=== PATIENT | male | born 1945 | race Caucasian/White ===

== ENCOUNTER 2019-11-28 01:38 | Day surgery (SDC) | payer MEDICARE, SELFPAY ==
[2019-11-23 11:27] VITALS: BMI 30.4
[2019-11-28 12:21] VITALS: BP 152/71; PULSE 78; RESP 16; TEMP 36.7; O2SAT 99; BMI 30.7
--- NOTE | 2019-11-28 12:29 | WPDANESEPPF ---
Anes - Initial Pre Proc Eval Procedure: Operation Date: 11/28/19 13:30 Proposed Procedures p Esophagogastroduodenoscopy & Colonoscopy - Vic Ramey MD Date/Time: 11/28/19 12:29 Surgeon: Vic Ramey MD Pre Op Diagnosis: Anemia Patient Data Age: 74 Gender: M Height: 6 ft 1 in Weight: 105.6 kg Last Vital Signs Temp 98.0 F 11/28/19 12:21 Pulse 78 11/28/19 12:21 Resp 16 11/28/19 12:21 BP 152/71 H 11/28/19 12:21 Pulse Ox 99 11/28/19 12:21 Allergies Allergy/AdvReac Type Severity Reaction Status Date / Time No Known Allergies Allergy Verified 11/28/19 12:20 Home Medications Medication Instructions Recorded Confirmed Type atorvastatin 20 mg tablet 20 mg PO DAILY 11/21/19 11/23/19 History gabapentin 800 mg tablet 800 mg PO TID 11/21/19 11/23/19 History glipizide 5 mg tablet 5 mg PO BID 11/21/19 11/23/19 History losartan 100 1 tablet PO DAILY 11/21/19 11/23/19 History mg-hydrochlorothiazide 12.5 mg tablet metformin 1,000 mg tablet 1,000 mg PO BID 11/21/19 11/23/19 History rxniwpidkvzp-nsn-elzee acid-vit 1 tablet PO DAILY 11/21/19 11/23/19 History K-lycop 400 mcg-20 mcg-370 mcg tablet polysaccharide iron complex 150 mg 150 mg PO DAILY 11/21/19 11/23/19 History iron capsule peg 3350-electrolytes 236 240 ml PO Q10M #4000 ml 11/22/19 Rx gram-22.74 gram-6.74 gram-5.86 gram solution latanoprost 1 drp OPHTHALMIC (EYE) DAILY 11/23/19 11/23/19 History Patient hx anesthesia problems: none Family hx anesthesia problems: none PMFSH Past Medical History Medical History (Updated 11/28/19 @ 12:52 by Alhaji Woodard MD) Diabetes Hyperlipidemia Hypertension Iron deficiency anemia Prostate cancer Anes - Eval Final PreProcedure Day of Procedure 11/28/19 12:29 Patient weight: obese Heart: regular rate and rhythm Lungs: clear to auscultation Airway: Mallampati scale class III Neurological: alert and oriented Last oral intake: >/= 8 hours ASA classification: III Emergent: no Anesthetic plan: proceed Anesthesia type and monitoring: general GIVS and standard monitoring Informed Consent: The patient's anesthetic plan and its attendant risks and benefits were discussed with the patient/family/POA. Questions were solicited and answers provided to the satisfaction of the patient/family/POA.
[2019-11-28] MEDS: LACTATED RINGERS 1,000 ML 150 ML IV CONT (12:34)
[2019-11-28 12:37] LABS: Glucose Point of Care 171 (65-105)
--- NOTE | 2019-11-28 14:00 | WPDHPUPDATE1 ---
History and Physical Update Update Date/Time: 11/28/19 14:00 History and Physical has been reviewed, including an updated exam of the patient. There are NO changes in the patient's condition. Risks, benefits, and alternatives have been discussed and questions answered. Patient agrees to proceed with procedure.
[2019-11-28 14:52] VITALS: BP 117/59; PULSE 82; RESP 16; O2SAT 98
[2019-11-28 15:02] VITALS: BP 121/60; PULSE 73; RESP 20; O2SAT 98
[2019-11-28 15:12] VITALS: BP 138/72; PULSE 74; RESP 18; O2SAT 99
== END 2019-11-28 15:36 | disposition home or self-care (01) ==
PROVIDERS: PCP Internal Medicine; Visit Provider Internal Medicine Gastroenterology
PROC: 0DJ08ZZ Inspection of Upper Intestinal Tract, Via Natural or Artificial Opening Endoscopic (ICD-10-PCS; CPT 43235; principal; 2019-11-28 13:30)
DX: D50.9 Iron deficiency anemia, unspecified (principal); D12.2 Benign neoplasm of ascending colon; Q27.33 Arteriovenous malformation of digestive system vessel; K57.30 Diverticulosis of large intestine without perforation or abscess without bleeding; K64.8 Other hemorrhoids; K64.4 Residual hemorrhoidal skin tags; K29.70 Gastritis, unspecified, without bleeding; I10 Essential (primary) hypertension; E78.5 Hyperlipidemia, unspecified; E11.9 Type 2 diabetes mellitus without complications; Z85.46 Personal history of malignant neoplasm of prostate; Z79.84 Long term (current) use of oral hypoglycemic drugs; E66.9 Obesity, unspecified; Z68.30 Body mass index [BMI] 30.0-30.9, adult
CPT/HCPCS: 45385; 45388; 43239; 88305; J2704; J7120

== ENCOUNTER 2020-03-05 11:10 | Outpatient (CLI) | payer MEDICARE, SELFPAY ==
--- NOTE | ~2020-03-05 | XR_ITS ---
XR lumbar spine 2-3V DATE: 03/05/2020 11:48 INDICATION: Sciatica TECHNIQUE: AP, lateral, coned lateral lumbosacral views COMPARISON: None FINDINGS: There is grade 1 anterolisthesis at L4-5 due to degenerative change at the apophyseal joint s. There is severe degenerative disc disease at L5-S1 with associated mild retrolisthesis. No fracture or bone destruction is evident. The lumbar and T12 pedicles are intact. The sacroiliac joints appear normal. There is extensive calcification of the abdominal aorta and iliac arteries without apparent aneurysm. IMPRESSION: Degenerative changes Reviewed, dictated and finalized at location A. IMPRESSION: Degenerative changes
== END 2020-03-05 11:11 | disposition home or self-care (01) ==
PROVIDERS: PCP Internal Medicine; Visit Provider Internal Medicine
DX: M54.5 Low back pain (principal)
CPT/HCPCS: 72100

== ENCOUNTER 2022-05-27 07:19 | Outpatient (CLI) | payer MEDICARE, SELFPAY ==
--- NOTE | ~2022-05-27 | US_ITS ---
EXAMINATION: US right upper quadrant DATE: 05/27/2022 08:08 INDICATION: Elevated liver enzymes TECHNIQUE: Multiple grayscale and Doppler ultrasound images of the abdomen were obtained. COMPARISON: None available FINDINGS: The head and body of the pancreas are normal. The pancreatic tail is obscured by bowel gas. The liver demonstrates increased echogenicity, heterogenous echotexture, and decreased through trans mission. Hypoechoic areas of the liver adjacent to the gallbladder fossa likely represent fatty spari ng. No surface nodularity. Normal hepatopetal flow in the main portal vein. The gallbladder is normal with no abnormal wall thickening, pericholecystic fluid or stones. The normal common bile duct measu res 4 mm. There was no sonographic Perez sign. IMPRESSION: 1. Diffuse hepatic steatosis. Reviewed, dictated and finalized at location B.
== END 2022-05-27 07:20 | disposition home or self-care (01) ==
PROVIDERS: PCP Internal Medicine; Visit Provider Internal Medicine
DX: R74.8 Abnormal levels of other serum enzymes (principal); K76.0 Fatty (change of) liver, not elsewhere classified
CPT/HCPCS: 76705

== ENCOUNTER 2022-08-07 10:18 | Outpatient (CLI) | payer MEDICARE, SELFPAY ==
--- NOTE | ~2022-08-07 | MR_ITS ---
EXAMINATION: MR lumbar spine wo con DATE: 08/07/2022 11:00 INDICATION: Low back pain. TECHNIQUE: Magnetic resonance imaging (MRI) of the lumbar spine was performed without intravenous con trast. Sequences included sagittal T2-weighted FSE, sagittal T2-weighted FS FSE, sagittal T1-weighted FSE, and axial T2-weighted FSE. COMPARISON: Lumbar spine radiograph 03/05/2020 FINDINGS: There is 5 degrees dextrocurvature of thoracolumbar spine. There is 5 mm anterolisthesis of L4 on L5 and 5 mm retrolisthesis of L5 on S1. Vertebral body heights are normal. There is mildly dec reased disc height at L4-L5 and severely decreased disc height at L5-S1 with endplate remodeling. The distal spinal cord signal intensity is normal. The conus medullaris is at L1. The following disc lev els are specifically discussed: L1-L2: The disc is bulging. There is moderate bilateral facet joint osteoarthritis. There is mild arabella ateral neural foraminal stenosis. There is mild central canal stenosis. L2-L3: The disc is bulging. There is severe right and mild left facet joint osteoarthritis. There is no neural foraminal stenosis. There is mild central canal stenosis. L3-L4: The disc is bulging and has an annular fissure. There is severe bilateral facet joint osteoart hritis. There is mild bilateral neural foraminal stenosis. There is mild central canal stenosis. L4-L5: The disc is bulging and has an annular fissure. There is severe bilateral facet joint osteoart hritis. There is moderate bilateral neural foraminal stenosis. There is moderate central canal stenos is. There is asymmetric severe stenosis of right lateral recess. L5-S1: The disc is bulging and has an annular fissure. There is moderate bilateral facet joint osteoa rthritis. There is moderate bilateral neural foraminal stenosis. There is mild central canal stenosis . IMPRESSION: 1. Severe lower lumbar spondylosis. Reviewed, dictated and finalized at location A. DINGS AND GROUNDS DIRECTOR
== END 2022-08-07 10:19 | disposition home or self-care (01) ==
PROVIDERS: PCP Internal Medicine; Visit Provider Internal Medicine
DX: M54.50 Low back pain, unspecified (principal); M43.06 Spondylolysis, lumbar region
CPT/HCPCS: 72148

== ENCOUNTER 2023-08-31 16:50 | Outpatient (CLI) | payer MEDICARE, SELFPAY ==
--- NOTE | ~2023-08-31 | XR_ITS ---
EXAMINATION: XR thoracic spine 3V DATE: 08/31/2023 17:20 INDICATION: Thoracic and lumbar radiculopathy. TECHNIQUE: 3 views of thoracic spine on 4 radiographs were obtained. COMPARISON: None. FINDINGS: There is 8 degrees levocurvature of thoracic spine. Vertebral body heights are normal. Ther e is mildly decreased disc height at multiple levels in mid thoracic spine. There are endplate osteop hytes at most levels. IMPRESSION: 1. Mild thoracic spondylosis. Reviewed, dictated and finalized at location E. EY WORKERS SUPERVISOR
--- NOTE | ~2023-08-31 | XR_ITS ---
EXAMINATION: XR lumbar spine 2-3V DATE: 08/31/2023 17:20 INDICATION: Lumbar radiculopathy. TECHNIQUE: 3 views of lumbar spine were obtained. COMPARISON: Lumbar spine radiograph 03/05/2020, MRI 08/07/2022 FINDINGS: There is 4 degrees dextrocurvature of lumbar spine. There is 5 mm anterolisthesis of L4 on L5 and 4 mm anterolisthesis of L5 on S1. Vertebral body heights are normal. There is mildly decreased disc height at L4-L5 and severely decreased disc height at L5-S1. There is multilevel facet joint os teoarthritis, severe in lower lumbar spine. IMPRESSION: 1. Severe lower lumbar spondylosis. Reviewed, dictated and finalized at location E. ITY ASSURANCE SUPERVISOR
== END 2023-08-31 16:51 | disposition home or self-care (01) ==
PROVIDERS: PCP Internal Medicine; Visit Provider Pain Medicine Interventional Pain Medicine
DX: M47.24 Other spondylosis with radiculopathy, thoracic region (principal); M47.25 Other spondylosis with radiculopathy, thoracolumbar region; M47.814 Spondylosis without myelopathy or radiculopathy, thoracic region; M47.815 Spondylosis without myelopathy or radiculopathy, thoracolumbar region; M43.06 Spondylolysis, lumbar region
CPT/HCPCS: 72072; 72100

== ENCOUNTER 2024-06-15 16:22 | Outpatient (CLI) | payer MEDICARE, SELFPAY ==
--- NOTE | ~2024-06-15 | CT_ITS ---
EXAMINATION:CT lung screening DATE: 06/15/2024 16:45 INDICATION: Personal history of nicotine dependence. Smoker who quit 13 years ago with 46 pack year h istory. TECHNIQUE: Computed tomography (CT) of the chest was performed without intravenous contrast. Automate d exposure control and iterative reconstruction technique were employed. The dose-length product (DLP ) was 200.85 mGy-cm. COMPARISON: None. FINDINGS: There is mild emphysema. There is mild atelectasis bilaterally. There is a 2.0 cm groundgla ss opacity in right upper lobe. There is a 1.4 cm groundglass opacity in right upper lobe. There is a 7 mm nodule in right upper lobe. There is a 4 mm nodule at minor fissure. There are small groundglas s opacities in left upper lobe and right lower lobe. No pleural effusion. The heart size is normal. T here are coronary artery calcifications. No pericardial effusion. There is mild thoracic spondylosis. IMPRESSION: 1. Lung-RADS category 3: Probably benign. Further evaluation is recommended with noncontrast low-dose chest CT in 6 months. Reviewed, dictated and finalized at location A. IMPRESSION: 1. Lung-RADS category 3: Probably benign. Further evaluation is recommended wit h noncontrast low-dose chest CT in 6 months.
== END 2024-06-15 16:23 | disposition home or self-care (01) ==
PROVIDERS: PCP Internal Medicine; Visit Provider Internal Medicine
DX: Z12.2 Encounter for screening for malignant neoplasm of respiratory organs (principal); Z87.891 Personal history of nicotine dependence
CPT/HCPCS: 71271

== ENCOUNTER 2024-09-07 13:45 | Outpatient (CLI) | payer MEDICARE, SELFPAY ==
--- NOTE | ~2024-09-07 | XR_ITS ---
3 VIEWS LUMBAR SPINE Ordering provider: Fabio Acharya History: . Radiculopathy . Comparison: None. FINDINGS: VERTEBRAL BODIES:Anterolisthesis at the level of L4-L5. No visible fracture or subluxation. Degenera tive changes of the spine. DISK SPACES: Narrowing of the disc L4-L5 and L5-S1. Multilevel facet joint disease. SOFT TISSUES: Atherosclerotic changes of the aorta. Opacity in the right upper quadrant which may rep resent a gall bladder stone. IMPRESSION: No acute osseous abnormality lumbar spine. Anterolisthesis at the level of L4-L5. Multilevel degenerative disc disease. Reviewed, dictated and finalized at location A. SCIENCE TECHNICIAN
--- NOTE | ~2024-09-07 | XR_ITS ---
XR_CERV2-3V_CR Ordering provider: Kayy Magallon History: . Radiculopathy . Comparison: None. FINDINGS: VERTEBRAL BODIES: DISH is seen anteriorly. Normal height and alignment. No visible fracture or sublux ation. The dens is intact. DISK SPACES: Narrowing of the disc C6-C7. Multilevel facet joint disease. Multilevel uncovertebral michael int osteoarthritic changes. PARASPINOUS SOFT TISSUES: No prevertebral soft tissue swelling. IMPRESSION: No acute osseous abnormality cervical spine. Degenerative disc disease at the level of C6-C7. Multilevel facet joint disease. Reviewed, dictated and finalized at location A. INJECTION MOLD TECHNICIAN IMPRESSION: No acute osseous abnormality cervical spine. Degenerative disc disease at the level of C6-C7. Multilevel facet joint disease .
== END 2024-09-07 13:46 | disposition home or self-care (01) ==
PROVIDERS: PCP Internal Medicine
DX: M43.16 Spondylolisthesis, lumbar region (principal); M51.369 Other intervertebral disc degeneration, lumbar region without mention of lumbar back pain or lower extremity pain; M54.12 Radiculopathy, cervical region
CPT/HCPCS: 72040; 72100

== ENCOUNTER 2024-11-22 12:37 | Outpatient (CLI) | payer MEDICARE, SELFPAY ==
--- NOTE | ~2024-11-22 | XR_ITS ---
Thoracic spine: Clinical Indication: Radiculopathy AP and lateral views were performed. No fracture is seen. There is normal alignment of the vertebrae. There is mild to moderate degenerat magali disc narrowing at the upper to mid thoracic spine. Paravertebral soft tissues appear normal. Impression: Mild degenerative change, overall, as above. Reviewed, dictated and finalized at location . Impression: Mild degenerative change, overall, as above.
--- OUTSIDE RECORDS SUMMARY | 2024-11-22 14:04 | XMS_ITS | Patient Health Summary ---
Author Organization [facility] Address [address] [place] [address] Care Team Providers Care Cost Estimating Clerk Name Role Phone Unavailable Primary Care Provider Unavailabl e Note from [facility],non-owned Affiliates and Associated Physician Practices is amultiple site organization consisting of ambulatory clinics and hospital sitesin [place], [place], [place] and [place]. This disclosure is being madepursuant to the Care Everywhere program and may not contain all information available regarding this patient. Last updated 18.[facility] [employer] Social History Tobacco Use Types Packs/Day Years Used Date Smoking Tobacco: Never Assessed Sex and Gender Information Value Date Recorded Sex Assigned at Not on file Gender Identity Not on file Sexual Orientation Not on file Procedures * DERMATOPATHOLOGY(Performed 07/31/2020) * DERMATOPATHOLOGY(Performed 07/17/2020) * DERMATOPATHOLOGY(Performed 05/27/2020) Results * DERMATOPATHOLOGY (07/31/2020 12:00 AM JOB TRACER) Only the most recent of3 resultswithin the time period is included. Case Report Dermatopathology Report Case: [id number] Authorizing Provider: Radha Tang MD Collected: 07/31/2020 12:00 AM Ordering Location: [facility] Received: 08/01/2020 06:54 AM Pathologist: Funmi Underwood MD Specimen: Skin, left mid back 0 1:48 PM JOB TRACER DERMATOPATHOLOGY LABORATORY Final Diagnosis Specimen A. SKIN, left mid back: BASAL CELL CARCINOMA, INFILTRATIVE PATTERN (C44.519) NOT PRESENT AT MARGIN DERMAL SCAR (L90.5) 0 1:48 PM JOB TRACER DERMATOPATHOLOGY LABORATORY Clinical History Biopsy proven BCC. 0 1:48 PM JOB TRACER DERMATOPATHOLOGY LABORATORY Gross Description Specimen A: Received is one formalin filled container labeled with the patient's name and designated left mid back. The specimen consists of a non-oriented ellipse of skin measuring [id number]. The epidermal surface consists of a centrally located 40h56an previous biopsy site. The margin is inked green. The 12 o'clock and 6 o'clock tips are submitted in cassette 1. The remainder of the ellipse is serially sectioned and submitted in cassettes 2-9. Jar 0. 0 1:48 PM [facility] DERMATOPATHOLOGY LABORATORY Microscopic Description Specimen A. SKIN, left mid back: Within the dermis there are nodular aggregates of basaloid cells associated with fibromyxoid stroma and epithelial-stromal clefts. At the advancing margin of the neoplasm, there are smaller angulated nests that infiltrate the dermis. This lesion is not present at the margin of the specimen. There are fibroblasts and collagen bundles oriented parallel to the skin surface with elongated blood vessels, some of which are oriented perpendicular to the skin surface. 0 1:48 PM [facility] DERMATOPATHOLOGY LABORATORY Disclaimer An external and internal positive and negative controls are appropriate for the histochemical, immunohistochemical and immunofluorescence stain(s) in this case (if any), except where stated explicitly. The performance characteristics of the stain(s) cited in this report were developed and its performance characteristic determined by the Dermatopathology Laboratory at [facility], directed by Dr. Jacinto Wise. These tests need not be, and therefore are not, approved by the [place] Food and Drug Administration. The tests are used for clinical purposes. Billing Codes Specimen Charges Stain Charges 92046 1 0 1:48 PM [facility] DERMATOPATHOLOGY LABORATORY Embedded Images 0 1:48 PM [facility] DERMATOPATHOLOGY LABORATORY Pathology/Cytolog y TISSUE SPECIMEN FROM SKIN / Unknown 07/31/2020 08/01/2020 6:54 AM JOB TRACER Radha Tang MD LAB - PATHOLOGY/CYT OLOGY ORDERABLES DERMATOPATHOLOGY LABORATORY [facility] - Department of Dermatology [address], [address] [phone]
--- OUTSIDE RECORDS SUMMARY | 2024-11-22 14:04 | XMS_ITS | Data Portability ---
Author Organization [place] [facility], Main Office Address [address] [place] [address] Assessment No assessment recorded. Plan of Treatment Reminders Order Date Submit Date Provider Last Modified By Organization Details Last Modified Time Details Appointments Follow Up 15 2024 02:45P M Christopher Hurley MD Not available Not available Not available Lab glycohemo globin, total, blood 2023 024 [facility] (Lab), [address] [place], [address], 07/05/2024 20:36:39 CMP, serum or plasma 2023 024 [facility] (Lab), [address] [place], [address], 07/05/2024 19:41:36 glycohemo globin, total, blood 2023 024 [facility] (Lab), [address] [place], [address], 03/01/2024 05:52:15 CMP, serum or plasma 2023 024 [facility] (Lab), [address] [place], [address], 02/29/2024 20:43:57 PSA, serum or plasma [address] (Lab), [address] [place], [address], 06/28/2023 07:53:07 urinalysi s, complete [address] (Lab), [address] [place], [address], 06/28/2023 07:53:07 unlisted lab - CBC study [address] (Lab), [address] [place], [address], 06/28/2023 07:53:07 CMP, serum or plasma [address] (Lab), [address] [place], [address], 06/28/2023 07:53:06 glycohemo globin, total, blood [address] (Lab), [address] [place], [address], 06/28/2023 07:53:06 CMP, serum or plasma [address] (Lab), [address] [place], [address], 06/28/2023 07:53:06 microalbu min, urine [address] (Lab), [address] [place], [address], 06/28/2023 07:53:06 lipid panel, serum [address] (Lab), [address] [place], [address], 06/28/2023 07:53:07 Referral None recorded. Procedures None recorded. Surgeries None recorded. Imaging LDCT, chest, for lung cancer screening - Auth approved, Auth# [id number], valid 02/29/24 - 08/27/242023 024 [facility] ([facility]), [address], [place], [address], 07/06/2024 16:42:14 Medication Orders ferrous sulfate 325 mg (65 mg iron) tablet 2023 024 [facility][id number], [address], [place], [address], 11/03/2023 10:57:56 Patient TargetsNo targets recorded. Patient InstructionsNo instructions recorded. Reason for Referral None Reported. Results Created Date Observation Date Name Description Value Unit Range Abnormal Flag Note LastModifiedBy Organization Detail LastModifiedTime 02/29/2002/29/2024 HEMOG LOBIN A1C HA1C 6.9 % 4.0-6. 0 high Diabe sonam Scree elier Crite holli: <5.7% Consi stent with absen ce of diabe sonam 5.7-6 .4% Consi stent with incre ased risk for diabe sonam (pred iabet es) >OR=6 .5% Consi stent with diabe sonam REFER ENCE: Diabe sonam Care 2016, 39(Johnson ppl.1 ):s13 -s22 Not Available [facility] (Lab) [address] [place], [address], 02/29/2024 20:04:24 02/29/20 24 02/29/2024 COMPR EHENS BRITT METAB OLIC PANEL sodium 139 mmol/ L 137-14 5 Not Available [facility] (Lab) [address] [place], [address], 02/29/2024 20:27:30 02/29/20 24 02/29/2024 COMPR EHENS BRITT METAB OLIC PANEL potassium 4.2 mmol/ L 3.5-5. 1 Not Available [facility] (Lab) [address] [place], [address], 02/29/2024 20:27:30 02/29/20 24 02/29/2024 COMPR EHENS BRITT METAB OLIC PANEL chloride 108 mmol/ L 98-107 high Not Available [facility] (Lab) [address] [place], [address], 02/29/2024 20:27:30 02/29/20 24 02/29/2024 COMPR EHENS BRITT METAB OLIC PANEL carbon dioxide 24 mmol/ L 22-30 Not Available [facility] (Lab) [address] [place], [address], 02/29/2024 20:27:30 02/29/20 24 02/29/2024 COMPR EHENS BRITT METAB OLIC PANEL anion gap 11.2 mmol/ L 14-22 low Not Available [facility] (Lab) [address] [place], [address], 02/29/2024 20:27:30 02/29/20 24 02/29/2024 COMPR EHENS BRITT METAB OLIC PANEL glucose 89 mg/dL 70-99 Not Available [facility] (Lab) [address] [place], [address], 02/29/2024 20:27:30 02/29/20 24 02/29/2024 COMPR EHENS BRITT METAB OLIC PANEL BUN 15 mg/dL 8-19 Not Available [facility] (Lab) [address] [place], [address], 02/29/2024 20:27:30 02/29/20 24 02/29/2024 COMPR EHENS BRITT METAB OLIC PANEL creatinine 0.92 mg/dL 0.66-1 .25 Not Available [facility] (Lab) [address] [place], [address], 02/29/2024 20:27:30 02/29/20 24 02/29/2024 COMPR EHENS BRITT METAB OLIC PANEL GFR >60 Refer ence Range : Traver ge GFR Healt hy Adult : >60 mL/mi n/1.7 3 m2 Chron ic Kidne y Disea se: 15-60 mL/mi n/1.7 3 m2 Kidkelsey y Failu re: <15/m L/min /1.73 m2 www.n iddk. nih.g ov The MDRD study equat ion has not been valid ated in child isma <18 years of age; pregn ant women ; the elder ly >85 years of age; or in some racia l or ethni c subgr oups, such as Hispa nics. Outsi de the valid ated ankur eters , estim ated GFR is less accur ate, requi ring clini milka judgm ent on a case- by-ca se basis . Clini milka inter preta tion for other races and ages must be made by the clini [place]. The MDRD study equat ion has not been valid ated for the evalu ation of serum creat inine relat ed to nutri [place] l statu s or medic ation usage . For perso ns <18 years of age, a pedia tric GFR calcu lator is avail able on the [facility] websi te: https ://delia mmcahan.neelam rg/pr ofess ional s/kdo qi/gf r_cal culat or Not Available [facility] (Lab) [address] [place], [address], 02/29/2024 20:27:30 02/29/20 24 02/29/2024 COMPR EHENS BRITT METAB OLIC PANEL alkaline phosphatase 79 U/L 38-126 Not Available [facility] (Lab) [address] [place], [address], 02/29/2024 20:27:30 02/29/20 24 02/29/2024 COMPR EHENS BRITT METAB OLIC PANEL alanine aminotransfe rase 46 U/L 0-50 Not Available [facility] (Lab) [address] [place], [address], 02/29/2024 20:27:30 02/29/20 24 02/29/2024 COMPR EHENS BRITT METAB OLIC PANEL aspartate aminotransfe rase 37 U/L 15-46 Not Available [facility] (Lab) [address] [place], [address], 02/29/2024 20:27:30 02/29/20 24 02/29/2024 COMPR EHENS BRITT METAB OLIC PANEL bilirubin, total 0.40 mg/dL 0.20-1 .30 Not Available [facility] (Lab) [address] [place], [address], 02/29/2024 20:27:30 02/29/20 24 02/29/2024 COMPR EHENS BRITT METAB OLIC PANEL calcium 10.0 mg/dL 8.4-10 .2 Not Available [facility] (Lab) [address] [place], [address], 02/29/2024 20:27:30 02/29/20 24 02/29/2024 COMPR EHENS BRITT METAB OLIC PANEL total protein 7.4 g/dL 6.3-8. 2 Not Available [facility] (Lab) [address] [place], [address], 02/29/2024 20:27:30 02/29/20 24 02/29/2024 COMPR EHENS BRITT METAB OLIC PANEL albumin 4.8 g/dL 3.0-4. 4 high Not Available [facility] (Lab) [address] [place], [address], 02/29/2024 20:27:30 02/29/20 24 02/29/2024 COMPR EHENS BRITT METAB OLIC PANEL globulin 2.6 g/dL 2.6-4. 2 Not Available [facility] (Lab) [address] [place], [address], 02/29/2024 20:27:30 02/29/20 24 02/29/2024 COMPR EHENS BRITT METAB OLIC PANEL A/G ratio 1.8 ratio 1.0-2. 0 Not Available [facility] (Lab) [address] [place], [address], 02/29/2024 20:27:30 07/05/2007/05/2024 COMPR EHENS BRITT METAB OLIC PANEL sodium 140 mmol/ L 137-14 5 Not Available [facility] (Lab) [address] [place], [address], 07/05/2024 19:41:36 07/05/2007/05/2024 COMPR EHENS BRITT METAB OLIC PANEL potassium 4.5 mmol/ L 3.5-5. 1 Not Available [facility] (Lab) [address] [place], [address], 07/05/2024 19:41:36 07/05/2007/05/2024 COMPR EHENS BRITT METAB OLIC PANEL chloride 105 mmol/ L 98-107 Not Available [facility] (Lab) [address] [place], [address], 07/05/2024 19:41:36 07/05/2007/05/2024 COMPR EHENS BRITT METAB OLIC PANEL carbon dioxide 24 mmol/ L 22-30 Not Available [facility] (Lab) [address] [place], [address], 07/05/2024 19:41:36 07/05/2007/05/2024 COMPR EHENS BRITT METAB OLIC PANEL anion gap 15.5 mmol/ L 14-22 Not Available [facility] (Lab) [address] [place], [address], 07/05/2024 19:41:36 07/05/2007/05/2024 COMPR EHENS BRITT METAB OLIC PANEL glucose 105 mg/dL 70-99 high Not Available [facility] (Lab) [address] [place], [address], 07/05/2024 19:41:36 07/05/20 24 07/05/2024 COMPR EHENS BRITT METAB OLIC PANEL BUN 15 mg/dL 8-19 Not Available [facility] (Lab) [address] [place], [address], 07/05/2024 19:41:36 07/05/2007/05/2024 COMPR EHENS BRITT METAB OLIC PANEL creatinine 1.12 mg/dL 0.66-1 .25 Not Available [facility] (Lab) [address] [place], [address], 07/05/2024 19:41:36 07/05/2007/05/2024 COMPR EHENS BRITT METAB OLIC PANEL GFR >60 Refer ence Range : Traver ge GFR Healt hy Adult : >60 mL/mi n/1.7 3 m2 Chron ic Kidne y Disea se: 15-60 mL/mi n/1.7 3 m2 Kidne y Failu re: <15/m L/min /1.73 m2 www.n iddk. nih.g ov The MDRD study equat ion has not been valid ated in child isma <18 years of age; pregn ant women ; the elder ly >85 years of age; or in some racia l or ethni c subgr oups, such as Hisok nics. Outsi de the valid ated ankur eters , estim ated GFR is less accur ate, requi ring clini milka judgm ent on a case- by-ca se basis . Clini milka inter preta tion for other races and ages must be made by the clini [place]. The MDRD study equat ion has not been valid ated for the evalu ation of serum creat inine relat ed to nutri [place] l statu s or medic ation usage . For perso ns <18 years of age, a pedia tric GFR calcu lator is avail able on the [facility] websi te: https ://delia mcmahan.o rg/pr ofess ional s/kdo qi/gf r_cal culat or Not Available [facility] (Lab) [address] [place], [address], 07/05/2024 19:41:36 07/05/2007/05/2024 COMPR EHENS BRITT METAB OLIC PANEL alkaline phosphatase 67 U/L 38-126 Not Available [facility] (Lab) [address] [place], [address], 07/05/2024 19:41:36 07/05/2007/05/2024 COMPR EHENS BRITT METAB OLIC PANEL alanine aminotransfe rase 41 U/L 0-50 Not Available [facility] (Lab) [address] [place], [address], 07/05/2024 19:41:36 07/05/2007/05/2024 COMPR EHENS BRITT METAB OLIC PANEL aspartate aminotransfe rase 35 U/L 15-46 Not Available [facility] (Lab) [address] [place], [address], 07/05/2024 19:41:36 07/05/2007/05/2024 COMPR EHENS BRITT METAB OLIC PANEL bilirubin, total 0.40 mg/dL 0.20-1 .30 Not Available [facility] (Lab) [address] [place], [address], 07/05/2024 19:41:36 07/05/2007/05/2024 COMPR EHENS BRITT METAB OLIC PANEL calcium 10.1 mg/dL 8.4-10 .2 Not Available [facility] (Lab) [address] [place], [address], 07/05/2024 19:41:36 07/05/2007/05/2024 COMPR EHENS BRITT METAB OLIC PANEL total protein 6.9 g/dL 6.3-8. 2 Not Available [facility] (Lab) [address] [place], [address], 07/05/2024 19:41:36 07/05/2007/05/2024 COMPR EHENS BRITT METAB OLIC PANEL albumin 4.5 g/dL 3.0-4. 4 high Not Available [facility] (Lab) [address] [place], [address], 07/05/2024 19:41:36 07/05/2007/05/2024 COMPR EHENS BRITT METAB OLIC PANEL globulin 2.4 g/dL 2.6-4. 2 low Not Available [facility] (Lab) [address] [place], [address], 07/05/2024 19:41:36 07/05/2007/05/2024 COMPR EHENS BRITT METAB OLIC PANEL A/G ratio 1.9 ratio 1.0-2. 0 Not Available [facility] (Lab) [address] [place], [address], 07/05/2024 19:41:36 07/05/2007/05/2024 HEMOG LOBIN A1C HA1C 6.8 % 4.0-6. 0 high Diabe sonam Scree elier Crite holli: <5.7% Consi stent with absen ce of diabe sonam 5.7-6 .4% Consi stent with incre ased risk for diabe sonam (pred iabet es) >OR=6 .5% Consi stent with diabe sonam REFER ENCE: Diabe sonam Care 2016, 39(Johnson ppl.1 ):s13 -s22 Not Available [facility] (Lab) [address] [place], [address], 07/05/2024 20:36:39 09/01/2008/31/2023 XR, thora cic spine , 3 view No observ ation record ed. [email or web address] Not Available 2022 10:17:19 07/06/20 24 06/15/2024 LDCT, chest , for lung cance r scree elier No observ ation record ed. [facility] (Imaging) [address], [place], [address], 07/06/2024 16:42:14 09/10/20 24 09/07/2024 XR, cervi milka spine , 2 or 3 view No observ ation record ed. [facility] Not Available 2023 18:11:33 Result Notes None recorded. Problems Name Problem SNOMED Code Status Onset Date Resolution Date Notes Provider Name and Address Organization Details Recorded Time Chronic back pain 981569715 Active 2021 Not Available [facility] 3 01:32:27 Low back pain 141395279 Active 2021 Not Available [facility] 3 01:32:27 Neuropath y 615146957 Active 2021 Not Available [facility] 3 01:32:27 Malignant tumor of prostate 819291864 Active 2021 Not Available [facility] 3 01:32:27 Hyperlipi demia 84319127 Active 2021 Not Available [facility] 3 01:32:27 Essential hypertens ion 49799275 Active 2021 Not Available [facility] 3 01:32:27 Liver enzymes level above reference range 636552563 Active 2021 Not Available [facility] 3 01:32:27 Diabetes mellitus 62317125 Active 2021 Not Available [facility] 3 01:32:27 Steatosis of liver 948282913 Active 2022 NAVEEN Seay null, [employer] [facility] 4 10:20:37 Type 2 diabetes mellitus without complicat ion 832690217 Completed 202211/03/2023 NAVEEN Seay null, [employer] [facility] 4 10:20:40 Onychomyc osis of toenails 501831380 Completed 202211/03/2023 Kanika coulter RMOvidio null, [place] [facility] 4 12:02:26 Tinea pedis 8606531 Completed 202211/03/2023 Kanika coulter, RMA null, [place] [facility] 4 12:02:26 Sebaceous cyst of skin 497309590 Active 2022 Christopher Hurley MD [address], [place], [address] , [place] [facility] 3 11:13:43 Type 2 diabetes mellitus 37246862 Completed 202211/03/2023 Kanika coulter, RMA null, [place] [facility] 4 10:20:42 COVID-19 569170073 Completed 202211/03/2023 Kanika coulter, RMA null, [place] [facility] 4 10:20:05 Anemia 148793039 Active 2023 Kanika coulter, RMA null, [place] [facility] 4 10:19:28 Iron deficienc y anemia 16254372 Active 2023 Christopher Hurley MD [address], [address], [place], [address] , [place] [facility] 4 10:57:11 Onychomyc osis of toenails 187109789 Active 2023 Kanika coulter RMA null, [place] [facility] 4 12:02:26 Tinea pedis 6717924 Active 2023 Kanika coulter, RMA null, [place] [facility] 4 12:02:26 Skin lesion 29688655 Active 2023 Christopher Hurley MD [address], [address], [place], [address] , [place] [facility] 4 10:44:57 CT of chest abnormal 51028340611 541355 Active 2023 Emma Alcala MA null, [place] [facility] 16:30:47 Problem Notes None recorded. Procedures Surgical History Date Name Laterality Status Provider Name and Address Organization Details Recorded Time other completed Not Available [facility] 10/2022 01:32:01 Imaging Results Imaging Date Name Status LastModified by Organiz ation Details LastModified Time 08/31/2023 [facility] Information not available 09/02/2023 10:17:19 06/15/2024 LDCT, chest, for lung cancer screening completed [facility] (Imaging) [address], [place], [address], 07/06/2024 16:42:14 09/07/2024 XR, cervical spine, 2 or 3 view completed [facility] Information not available 09/10/2024 18:11:33 Procedure Notes None recorded. Medical Equipment None Reported. Allergies No known drug allergies Medications Name Sig Start Date Stop Date Status Note LastModified by Organization Details LastModified Time latanopros t 0.005 % eye drops INSTILL 1 DROP INTO BOTH EYES AT BEDTIME active Not Available Not Available No t Available atorvastat in 20 mg tablet TAKE 1 TABLET BY MOUTH EVERY DAY 2023 active PATRICIA 4 11/08/24 ok to rf Not Available Not Available Not Available ketoconazo le 2 % shampoo USE ON SCALE DAILY active Not Available Not Available No t Available amlodipine 5 mg tablet TAKE 1 TABLET BY MOUTH EVERY DAY active Not Available Not Available No t Available tramadol 50 mg tablet TAKE 1 TABLET BY MOUTH 3 TIMES A DAY NEEDED FOR RADICULO LD LUMBAR REGION active Not Available Not Available No t Available gabapentin 800 mg tablet TAKE ONE (1) TABLET BY MOUTH THREE (3) TIMES DAILY 2023 active Not Available Not Available Not Avai lable ferrous sulfate 325 mg (65 mg iron) tablet TAKE 1 TABLET BY MOUTH TWICE A DAY 2023 active Not Available Not Available Not Avai lable metformin 1,000 mg tablet TAKE 1 TABLET BY MOUTH TWICE A DAY active Not Available Not Available No t Available hydrocorti sone 2.5 % topical cream APPLY TO CHEST TWICE DAILY FOR 7 DAYS THEN NEEDED 02/28 completed Not Available Not Available Not Available ketoconazo le 2 % topical cream APPLY TO FEET TWICE DAILY active Not Available Not Available No t Available metronidaz ole 0.75 % topical gel APPLY TO FACE TWICE DAILY active Not Available Not Available No t Available glipizide 5 mg tablet TAKE 1 TABLET BY MOUTH TWICE A DAY active Not Available Not Available No t Available losartan 100 mg-hydroch lorothiazi de 12.5 mg tablet TAKE 1 TABLET BY MOUTH EVERY DAY active Not Available Not Available No t Available OneTouch Verio test strips USE TO TEST BLOOD SUGARS ONCE DAILY active Not Available Not Available No t Available OneTouch Delica Plus Lancet 33 gauge USE TO TEST BLOOD SUGAR TWICE A DAY active Not Available Not Available No t Available Rybelsus 14 mg tablet TAKE 1 TABLET BY MOUTH EVERY DAY BEFORE BREAKFAS T 04/13 completed too expensi ve. no longer takes Not Available Not Available Not Available Rybelsus 7 mg tablet TAKE 1 TABLET BY MOUTH EVERY DAY BEFORE BREAKFAS T 04/13 completed Not Available Not Available Not Available Paxlovid 300 mg (150 mg x 2)-100 mg tablets in a dose pack TAKE 3 TABLETS BY MOUTH TOGETHER TWICE A DAY FOR 5 DAYS DIRECTED 02/28 completed Not Available Not Available Not Available Vitals Date Recorded Body height Body mass index (BMI) Body weight Body temperature Heart rate Oxygen saturation Oxygen saturation in Arterial blood by Pulse oximetry Systolic blood pressure Diastolic blood pressure Provider Name and Address Organization Details Last Updated DateTime 3 182.88 cm 30.2 kg/m2 593569. 1 g 97 [degF] 96 /min 98 % 98 % 126 mm[Hg] 60 mm[Hg] NAVEEN Watkins [facility] 3 10:50:36 Date Recorded Body height Body mass index (BMI) Body weight Body temperature Heart rate Oxygen saturation Oxygen saturation in Arterial blood by Pulse oximetry Systolic blood pressure Diastolic blood pressure Provider Name and Address Organization Details Last Updated DateTime 4 182.88 cm 29.7 kg/m2 54255.7 3 g 98.8 [degF] 94 /min 98 % 98 % 110 mm[Hg] 62 mm[Hg] Saul Schumacher CMA [employer] [facility] 4 10:08:56 Date Recorded Body height Body mass index (BMI) Body weight Body temperature Heart rate Respiratory rate Oxygen saturation Oxygen saturation in Arterial blood by Pulse oximetry Systolic blood pressure Diastolic blood pressure Provider Name and Address Organization Details Last Updated DateTime 4 182.88 cm 30.7 kg/m2 226768. 88 g 97.2 [degF] 104 /min 16 /min 96 % 96 % 136 mm[Hg] 76 mm[Hg] Emma Alcala MA [facility] [employer] [facility] 4 11:59:14 Date Recorded Body height Body mass index (BMI) Body weight Body temperature Heart rate Oxygen saturation Oxygen saturation in Arterial blood by Pulse oximetry Systolic blood pressure Diastolic blood pressure Provider Name and Address Organization Details Last Updated DateTime 4 182.88 cm 30 kg/m2 539333. 91 g 98.4 [degF] 100 /min 98 % 98 % 118 mm[Hg] 62 mm[Hg] Valerie Zimmerman MA [facility] [employer] [facility] 4 10:24:15 Date Recorded Body height Body mass index (BMI) Body weight Body temperature Heart rate Oxygen saturation Oxygen saturation in Arterial blood by Pulse oximetry Systolic blood pressure Diastolic blood pressure Provider Name and Address Organization Details Last Updated DateTime 4 182.88 cm 30 kg/m2 022916. 91 g 97.6 [degF] 97 /min 98 % 98 % 130 mm[Hg] 74 mm[Hg] NAVEEN Watkins [facility] [employer] [facility] 4 15:04:44 Social History Question Answer Notes LastModified by Organizat ion Details LastModified Time Tobacco Smoking Status Former Smoker Not Available [facility] 11/11/2022 01:31:30 Do You Have An Advance Directive? No [id number] Information not available 11/11/2022 What Is Your Level Of Alcohol Consumption? None [id number] Information not available 11/11/2022 Do You Wear A Helmet When Biking? No MIGRATION.[id number] 1091 Information not available 11/11/2022 Are You Blind Or Do You Have Difficulty Seeing? No [id number].[id number] 8639 Information not available 11/11/2022 What Is Your Level Of Caffeine Consumption? Moderate MIGRATION.[id number] 1262 Information not available 11/11/2022 Are You Deaf Or Do You Have Serious Difficulty Hearing? No [id number].[id number] Information not available 11/11/2022 What Type Of Diet Are You Following? REGULAR [id number].[id number] 3137 Information not available 11/11/2022 What Is The Highest Grade Or Level Of School You Have Completed Or The Highest Degree You Have Received? [id number] [id number].650271 [id number] Information not available 11/11/2022 Have There Been Any Changes To Your Family Or Social Situation? No MIGRATION.[id number] [id number] Information not available 11/11/2022 Do You Use Insect Repellent Routinely? No MIGRATION.[id number] Information not available 11/11/2022 Where Do You Live? [facility] [id number].[id number] Information not available 11/11/2022 What Was The Date Of Your Most Recent Tobacco Screening? 04/13/2022 MIGRATION.[id number] 7595 Information not available 11/11/2022 Do You Have Any Pets? No MIGRATION.975159 4999 Information not available 11/11/2022 What Is Your Relationship Status? MIGRATION.[id number] 0972 Information not available 11/11/2022 Do You Use Your Seat Belt Or Car Seat Routinely? Yes MIGRATION.782989 8020 Information not available 11/11/2022 Do You Have Smoke And Carbon Monoxide Detectors In Your Home? Yes MIGRATION.836155 0851 Information not available 11/11/2022 At What Age Did You Start Smoking Tobacco? 19 MIGRATION.[id number] 6000 Information not available 11/11/2022 Are You Passively Exposed To Smoke? No MIGRATION.675647 2877 Information not available 11/11/2022 Are There Any Smokers In Your House? No MIGRATION.102898 3504 Information not available 11/11/2022 Do You Feel Stressed (tense, Restless, Nervous, Or Anxious, Or Unable To Sleep At Night)? [id number] MIGRATION.561293 8770 Information not available 11/11/2022 Do You Use Any Illicit Or Recreational Drugs? No MIGRATION.004950 2591 Information not available 11/11/2022 Do You Use Sunscreen Routinely? No MIGRATION.072661 9501 Information not available 11/11/2022 Have You Recently Traveled Abroad? No MIGRATION.133767 3249 Information not available 11/11/2022 Do You Have Any Dietary Restrictions? No MIGRATION.[id number] 3545 Information not available 11/11/2022 Sex: Male Functional Status Question Answer Note LastModified by [employer] Details LastModified Time Do you have difficulty walking or climbing stairs? No [id number].[id number] 026 Information not available 11/11/2022 Do you have transportation difficulties? No MIGRATION.[id number] 026 Information not available 11/11/2022 Are you able to walk? YESWOREST MIGRATION.8638637 026 Information not available 11/11/2022 Do you have difficulty doing errands alone? No MIGRATION.[id number] 026 Information not available 11/11/2022 Are you able to care for yourself? Yes MIGRATION.[id number] 026 Information not available 11/11/2022 Do you have difficulty dressing or bathing? No MIGRATION.[id number] 026 Information not available 11/11/2022 What is your exercise level? None MIGRATION.[id number] 026 Information not available 11/11/2022 Mental Status Question Answer Note LastModified by Organizat [employer] Details LastModified Time Do you have difficulty concentrating, remembering or making decisions? No [id number] Information not available 11/11/2022 Family History Relationship Description Onset Age of this Age Resolved Age Notes LastModified by Organization Details LastModified Time Father Heart disease 75 [id number].255 [id number] Not available 11/11/2022 01:32:01 Paternal Grandfather Heart disease 67 MIGRATION.498 [id number] Not available 11/11/2022 01:32:01 Maternal Grandfather Heart disease 80 MIGRATION.716 [id number] Not available 11/11/2022 01:32:01 Maternal Grandmother Family history of malignant neoplasm 45 female cancer of some sort MIGRATION.060 [id number] Not available 11/11/2022 01:32:01 Sister Family history of malignant neoplasm Brain MIGRATION.660 [id number] Not available 11/11/2022 01:32:01 Medical History No medical history recorded. Immunizations Vaccine Type Date Status Note Provider Nam e and Address Organization Details Recorded Time Influenza, high-dose, quadrivalent, PF 06/14/2023 completed NAVEEN Mendez, [place] [facility] [employer] [facility] 06/14/2023 13:49:40 Influenza, high-dose, trivalent, PF 07/05/2024 completed Christopher Hurley MD [address] [facility], [place], [address], [facility] 07/05/2024 17:08:06 Past Encounters Encounter ID Performer Location Encounter Start Date Encounter Closed Date Diagnosis/Indication Diagnosis SNOMED-CT Code Diagnosis ICD10 Code Diagnosis Note [id number] [facility] [address] [facility] [place] [address] 04/13/2022 00:00:00 04/13/2022 13:06:27 [id number] [facility] [address] [place] [address] 05/14/2022 00:00:00 05/14/2022 10:22:10 [id number] [facility] [address] [place] [address] 07/21/2022 00:00:00 07/21/2022 16:11:42 [id number] [facility] [address] [place] [address] 08/10/2022 00:00:00 08/10/2022 16:17:02 [id number] [facility] [address] [place] [address] 09/28/2022 00:00:00 09/28/2022 13:11:52 [id number] Christopher Hurley MD [facility] [address] [place] [address] 02/01/2023 10:20:54 02/01/2023 11:18:18 Essential hypertension 40444824 I10 under control Hyperlipidemia 92239173 E78.5 labs good 06/03 Diabetes mellitus 447052 09 E11.9 keep watching diet AND LOSE WEIGHT Malignant tumor of prostate 749579017 C61 no change Neuropathy 778396959 G62 .9 meds help Low back pain 194355010 M54.50 has radicular symptoms, seeing pain management dr Mckeon Adult [facility] th examination 557630159 Z00.00 Colonoscop 2019 @ [facility] neu movax- Has had bothFlu- OVID- Has had 3 injShingle shot #1 Steatosis of liver 1007 K76.0 low fat diet [id number] Christopher Hurley MD [facility] Internal Med [address] [facility] [place] [address] 06/14/2023 10:45:25 06/14/2023 11:16:51 Diabetes mellitus 81030756 E11.9 keep watching diet Essential hypertension 98081828 I10 under control Hyperlipidemia 66314740 E78.5 Malignant tumor of prostate 095375245 C61 no change Neuropathy 731264138 G62 .9 meds help Low back pain 159608816 M54.50 has radicular symptoms, seeing pain management dr Mckeon Adult heal th examination 946082096 Z00.00 Colonoscop y- 2019 @ [facility] 05/2022 , orderedPne umovax- Has had bothFlu- OV ID- Has had 3 injShingle shot #1 Steatosis of liver 1007 K76.0 low fat diet Administra tion of influenza vaccine 21256586 Z23 Onychomyco sis of toenails 840783192 B35.1 seen derm and using meds Tinea pedis 9293995 B35. 3 using ketoconazo le Sebaceous cyst of skin 824951595 L72.3 watch [id number] Christopher Hurley MD [facility] Internal Med [address] [facility] [place] [address] 11/03/2023 09:58:06 11/03/2023 11:01:11 Diabetes mellitus 27538229 E11.9 keep watching diet Essential hypertension 43256506 I10 under control Hyperlipidemia 59334737 E78.5 watch diet due to high Trig Malignant tumor of prostate 533784606 C61 no change Neuropathy 291712924 G62 .9 meds help Low back pain 580261123 M54.50 has radicular symptoms, seeing pain management dr Mckeon Adult heal th examination 392780205 Z00.00 Colonoscop y- 2019 @ [facility] A05/2022 , orderedPne umovax- Has had bothFlu- 10/2023COV ID- Has had 3 injShingle shot #1 Steatosis of liver 1007 K76.0 low fat diet Onychomyco sis of toenails 380558334 B35.1 seen derm and using meds Tinea pedis 9922217 B35. 3 using ketoconazo le Iron defic iency anemia 51259600 D50.9 [id number] Christopher Hurley MD [facility] Internal Med [address] [place] [address] 02/29/2024 11:33:47 02/29/2024 12:47:47 Diabetes mellitus 42257570 E11.9 keep watching diet , check labs Essential hypertension 61410233 I10 under control Hyperlipidemia 33637271 E78.5 watch diet due to high Trig, advise dto watch diet Malignant tumor of prostate 144216279 C61 no change Neuropathy 984810006 G62 .9 meds help Low back pain 395563979 M54.50 has radicular symptoms, seeing pain management dr Mckeon [facility] th examination 428584000 Z00.00 Colonoscop y- 2019 @ [facility] A- 10/07/2023 Pneumovax- Has had bothFlu- 3COV ID- Has had 3 injShingle shot #1 Steatosis of liver 1007 K76.0 low fat diet Onychomyco sis of toenails 676340103 B35.1 seen derm and using meds Tinea pedis 3858859 B35. 3 seen derm Iron defic iency anemia 99331230 D50.9 on iron pills Ex-smoker 7760729 Z87.89 1 [id number] Christopher Hurley MD [facility] Internal Med [address] [place] [address] 05/17/2024 10:17:02 05/17/2024 10:46:24 Diabetes mellitus 04127614 E11.9 keep watching diet , under control Essential hypertension 85243401 I10 under control Hyperlipidemia 52622715 E78.5 watch diet due to high Trig, Malignant tumor of prostate 948237320 C61 no change Neuropathy 367379235 G62 .9 meds help Low back pain 063330887 M54.50 has radicular symptoms, seeing pain management dr Mckeon Steatosis of liver 1007 K76.0 discusssed low fat diet Onychomyco sis of toenails 373636330 B35.1 seen derm and using meds Tinea pedis 8508634 B35. 3 seen derm Iron defic iency anemia 34642229 D50.9 on iron pills Adult heal th examination 926087935 Z00.00 Colonoscop y- 2020 @ [facility] A- 10/07/2023 Pneumovax- Has had bothFlu- OV ID- Has had 3 injShingle shot #1 Ex-smoker 2734654 Z87.89 1 LDCT next month Skin lesion 75389514 L98 .9 advised to see derm [id number] Christopher Hurley MD [facility] [address] [place] [address] 07/05/2024 14:56:05 07/05/2024 15:41:01 Diabetes mellitus 18361120 E11.9 keep watching diet , under control Essential hypertension 91633666 I10 under control Hyperlipidemia 42172207 E78.5 watch diet Malignant tumor of prostate 196834846 C61 no change Neuropathy 276918525 G62 .9 meds help Low back pain 710493359 M54.50 has radicular symptoms, seeing pain management dr Mckeon Steatosis of liver 1007 K76.0 better Onychomyco sis of toenails 655611619 B35.1 seen derm and using meds Tinea pedis 2325508 B35. 3 seen derm Iron defic iency anemia 88659183 D50.9 on iron pills Adult heal th examination 131301695 Z00.00 Colonoscop y- 2019 @ [facility] [place] - 10/07/2023 Pneumovax- Has had bothFlu- 07/05/2024 COVID- Has had 3 injShingle shot #1 Ex-smoker 7816164 Z87.89 1 LDCT 07/05, no reports Administra tion of influenza vaccine 00264245 Z23 Health Concerns Section Related Observation LastModified by Organization Detai ls LastModified Time None Recorded Concern Status LastModified by Organization Details LastModified Time None Recorded Advance Directives Directive N: Payers Encounter Date Sequence Insurance Name Policy Number Policy Carpio Covered Member ID Carpio Member ID Guarantor Name 06/14/2023 1 [employer] [id number] Gordon Lopez [id number] Gordon Lopez III 11/03/2023 1 [employer] [id number] Gordon Lopez [id number] Gordon Lopez III 02/29/2024 1 [employer] [id number] Gordon Lopez [id number] Gordon Lopez III 05/17/2024 1 [employer] [id number] Gordon Lopez [id number] Gordon Lopez III 07/05/2024 1 [employer] [id number] Gordon Lopez [id number] Gordon Lopez III Notes Date Note Type Note Provider Name and Address Organization Details Recorded Time 06/14/2023 text/html He is here today for a 4 month follow upDiabetes- accu check 120-180, A1c was done , no resultsNo hypoglycemia, No neuropathyLast eye exam- 05/2023 [facility] (not in chart)Meds- Glipizide 5mg BID, Metformin 1,000mg BIDHyperlipidemia- on meds, labs 06/03Meds- Atorvastatin 20mg dailyHypertension- controlled with medsMeds- Amlodipine 5mg daily, Losartan 100mg/HCTZ 12.5mg dailyNeuropathy/ right and left leg pain- had MRI of the back 08/03 , better with epidurals and taking TramadolSees Dr. Balbuena- Gabapentin 800mg TID, Tramadol 50mg TID PRN Fatty liver-- hep neg, liver US with fatty liver,Prostate cancer [place]/p [place]state[place], gets psa regularly, no urology f/u, no symptoms , PSA 0.064Glaucoma- sees opthalmologic twice a yr, uses eye drops to control the pressureHas a history of skin cancer- Had cancer removed from the neck and back, sees derm annuallyColon polyp- colonoscopy in 2019, no polyp seen per him Christopher Hurley MD [address] [facility] [facility] [address], [place], [address], [place] [facility] 06/14/2023 11:15:22 11/03/2023 text/html He is here today for a 4 month follow up Diabetes- accu check always <200, A1c- 7.3 in 10/05No hypoglycemia, No neuropathyLast eye exam- 05/2023 [facility] (not in chart)Meds- Glipizide 5mg BID, Metformin 1,000mg BIDHyperlipidemia- on meds, labs good, Trig were highMeds- Atorvastatin 20mg dailyAnemia- iron def, on otc Hypertension- controlled with medsMeds- Amlodipine 5mg daily, Losartan 100mg/HCTZ 12.5mgNeuropathy/ right and left leg pain- had MRI of the back 08/03 , better with epidurals and taking TramadolSees Dr. Balbuena- Gabapentin 800mg TID, Tramadol 50mg TID PRN Fatty liver-- hep neg, liver US with fatty liver,Prostate cancer [place]/p [place]ctomy [place], gets psa regularly, no urology f/u, no symptoms , PSA 0.064Glaucoma- sees opthalmologic twice a yr, uses eye drops to control the pressureHas a history of skin cancer- Had cancer removed from the neck and back, sees derm annuallyColon polyp- colonoscopy in 2019, no polyp seen per him Christopher Hurley MD [address] [facility], [facility] [address], [place], [address], [place] [facility] 11/03/2023 10:58:38 02/29/2024 text/html He is here today for a 4 month follow up Diabetes- accu check always 150-200, A1c- 7.3 in 10/05No hypoglycemia,No neuropathyLast eye exam- 05/2023 [facility] (not in chart)Meds- Glipizide 5mg BID, Metformin 1,000mg BIDHyperlipidemia- on meds, Trig were highMeds- Atorvastatin 20mg dailyAnemia- iron def, on otc bid Hypertension- controlled with medsMeds- Amlodipine 5mg daily, Losartan 100mg/HCTZ 12.5mgNeuropathy/ right and left leg pain- had MRI of the back 08/03 , better with epidurals and taking TramadolSees Dr. Balbuena- Gabapentin 800mg TID, Tramadol 50mg TID PRN Fatty liver-- hep neg, liver US with fatty liver,Prostate cancer [place], gets psa regularly, no urology f/u, no symptoms , PSA 0.064Glaucoma- sees opthalmologic twice a yr, uses eye drops to control the pressureHas a history of skin cancer- Had cancer removed from the neck and back, [place] colonoscopy in 2019, no polyp seen per him Ex smoker- quit in 2010, smoked 2-3 ppd x 50 yrs Christopher Hurley MD [address] [employer], [address], [place], [address], [employer] 02/29/2024 12:29:22 05/17/2024 text/html He is here today for a 4 month follow up Also has a rash on his arms, Has noticed it a few weeks ago, Does not itch Diabetes- accu check always 140-150, A1c- 6.9 in 02/29/2024No hypoglycemia,No neuropathyLast eye exam- 12/15/23 (in chart)Meds- Glipizide 5mg BID, Metformin 1,000mg BIDHyperlipidemia- on meds, Trig were highMeds- Atorvastatin 20mg dailyAnemia- iron def, on otc bid Hypertension- controlled with medsMeds- Amlodipine 5mg daily, Losartan 100mg/HCTZ 12.5mgNeuropathy/ right and left leg pain- had MRI of the back 08/03 , better with epidurals and taking TramadolSees Dr. Balbuena- Gabapentin 800mg TID, Tramadol 50mg TID PRN Fatty liver-- hep neg, liver US with fatty liver,Prostate cancer s/p [place]statectomy [place], gets psa regularly, no urology f/u, no symptoms , PSA 0.064Glaucoma- sees opthalmologic twice a yr, uses eye drops to control the pressureHas a history of skin cancer- Had cancer removed from the neck and back, [place] [facility]- colonoscopy in 2019, no polyp seen per him Ex smoker- quit in 2010, smoked 2-3 ppd x 50 yrs Christopher Hulrey MD [address], [address], [place], [address], [employer] 05/17/2024 10:45:40 07/05/2024 text/html He is here today for a 4 month follow up Also has a rash on his arms, Has noticed it a few weeks ago, Does not itch Diabetes- accu check always 140-<200,A1c- 6.9 in 02/29/2024No hypoglycemia,No neuropathyLast eye exam- 12/15/23 (in chart)Meds- Glipizide 5mg BID, Metformin 1,000mg BIDHyperlipidemia- on meds, Trig were high (TRIG- 282), labs 10/05Meds- Atorvastatin 20mg dailyAnemia- iron def, on otc bid Hypertension- controlled with medsMeds- Amlodipine 5mg daily, Losartan 100mg/HCTZ 12.5mgNeuropathy/ right and left leg pain- had MRI of the back 08/03 , better with epidurals and taking TramadolSees Dr. Balbuena- Gabapentin 800mg TID, Tramadol 50mg TID PRN Fatty liver-- hep neg, liver US with fatty liver, LFT nlProstate cancer s/p [place]statectomy [place] 2004, gets psa regularly, no urology f/u, no symptoms , PSA 0.o4 in 10/05Glaucoma- sees opthalmologic twice a yr, uses eye drops to control the pressureHas a history of skin cancer- Had cancer removed from the neck and back, [place]- colonoscopy in 2019, no polyp seen per him Ex- smoker- quit in 2010, smoked 2-3 ppd x 50 yrs Christopher Hurley MD [address] [facility], [facility] [address], [place], [address], [place] [facility] 07/05/2024 17:08:14
--- OUTSIDE RECORDS SUMMARY | 2024-11-22 14:04 | XMS_ITS | Referral Summary ---
Author Organization [facility] Address [address] [place] [address] Care Team Providers Care Harness Puller Name Role Phone Unavailable Primary Care Provider Unavailabl e Source Comments [facility],non-owned Affiliates and Associated Physician Practices is amultiple site organization consisting of ambulatory clinics and hospital sitesin [place], [place], [place] and [place]. This disclosure is being madepursuant to the Care Everywhere program and may not contain all information available regarding this patient. Last updated 18.[facility] Social History Tobacco Use Types Packs/Day Years Used Date Smoking Tobacco: Never Assessed Sex and Gender Information Value Date Recorded Sex Assigned at Not on file Gender Identity Not on file Sexual Orientation Not on file Plan of Treatment Not on file
--- OUTSIDE RECORDS SUMMARY | 2024-11-22 14:05 | XMS_ITS | Encounter Summary ---
Author Organization [facility] Address [address] [facility] [place] [address] Care Team Providers Care Director Of Patient Safety Name Role Phone Unavailable Primary Care Provider Unavailabl e Encounter Details Date Type Department Care Team (Late st Contact Info) Description 08/01/2020 Lab Requisition [facility] DermPath Lab [address] [facility] [place] [id number] Radha Tang MD [address] [facility] [address] DEPT [place] [address] Social History Tobacco Use Types Packs/Day Years Used Date Smoking Tobacco: Never Assessed Sex and Gender Information Value Date Recorded Sex Assigned at Not on file Gender Identity Not on file Sexual Orientation Not on file documented as of this encounter Plan of Treatment Not on file documented as of this encounter Procedures Procedure Name Priority Date/Time Associated Diagnosis Comments DERMATOPATHOLOGY Routine 07/31/2020 12:[address] RESEARCHER documented in this encounter Results * DERMATOPATHOLOGY (07/31/2020 12:[address] RESEARCHER) Case Report Dermatopathology Report Case: [id number] Authorizing Provider: Radha Tang MD Collected: 07/31/2020 12:00 AM Ordering Location: [facility] DermPath Lab Received: 08/01/2020 06:54 AM Pathologist: Funmi Underwood MD Specimen: Skin, left mid back 0 1:[address] [facility] DERMATOPATHOLOGY LABORATORY Final Diagnosis Specimen A. SKIN, left mid back: BASAL CELL CARCINOMA, INFILTRATIVE PATTERN (C44.519) NOT PRESENT AT MARGIN DERMAL SCAR (L90.5) 0 1:[address] [facility]ERMATOPATH[facility] LABORATORY Clinical History Biopsy proven BCC. 0 1:48 PM [facility] DERMATOPATHOLOGY LABORATORY Gross Description Specimen A: Received is one formalin filled container labeled with the patient's name and designated left mid back. The specimen consists of a non-oriented ellipse of skin measuring [id number]. The epidermal surface consists of a centrally located 65h55gm previous biopsy site. The margin is inked green. The 12 o'clock and 6 o'clock tips are submitted in cassette 1. The remainder of the ellipse is serially sectioned and submitted in cassettes 2-9. Jar 0. 0 1:48 PM [facility] DERMATOPATHOLOGY LABORATORY Microscopic Description Specimen A. SKIN, [...] to the skin surface. 0 1:48 PM [facility] DERMATOPATHOLOGY LABORATORY Disclaimer An external and internal positive and negative controls are appropriate for the histochemical, immunohistochemical and immunofluorescence stain(s) in this case (if any), except where stated explicitly. The performance characteristics of the stain(s) cited in this report were developed and its performance characteristic determined by the Dermatopathology Laboratory at [facility], directed by Dr. Jacinto Wise. These tests need not be, and therefore are not, approved by the [place] Food and Drug Administration. The tests are used for clinical purposes. Billing Codes Specimen Charges Stain Charges 03829 1 0 1:48 PM [facility] DERMATOPATHOLOGY LABORATORY Embedded Images 0 1:48 PM [facility] DERMATOPATHOLOGY LABORATORY Pathology/Cytolog y TISSUE SPECIMEN FROM SKIN / Unknown 07/31/2020 08/01/2020 6:[address] RESEARCHER Radha Tang MD LAB - PATHOLOGY/CYT OLOGY ORDERABLES DERMATOPATHOLOGY LABORATORY [facility] - Department of Dermatology [address], [address] [phone] documented in this encounter Visit Diagnoses Not on filedocumented in this encounter
--- OUTSIDE RECORDS SUMMARY | 2024-11-22 14:05 | XMS_ITS | Encounter Summary ---
Author Organization [facility] Address [address] [facility] [place] [address] Care Team Providers Care Industry Operations Investigator Name Role Phone Unavailable Primary Care Provider Unavailabl e Encounter Details Date Type Department Care Team (Late st Contact Info) Description 05/28/2020 Lab Requisition [facility] DermPath Lab [address] [facility] [place] [phone] [phone] Radha Tang MD [address] [facility] [address] [place] [address] Social History Tobacco Use Types Packs/Day Years Used Date Smoking Tobacco: Never Assessed Sex and Gender Information Value Date Recorded Sex Assigned at Not on file Gender Identity Not on file Sexual Orientation Not on file documented as of this encounter Plan of Treatment Not on file documented as of this encounter Procedures Procedure Name Priority Date/Time Associated Diagnosis Comments DERMATOPATHOLOGY Routine 05/27/2020 12:0 0 AM CDT documented in this encounter Results * DERMATOPATHOLOGY (05/27/2020 12:00 AM CDT) Case Report Dermatopathology Report Case: [id number] Authorizing Provider: Radha Tang MD Collected: 05/27/2020 12:00 AM Ordering Location: [facility] DermPath Lab Received: 05/28/2020 01:24 PM Pathologist: Mirlande Villarreal MD Specimens: A) - Skin, left mid back B) - Skin, left neck 0 5:26 PM CDT DERMATOPATHOLOGY LABORATORY Final Diagnosis Specimen A. SKIN, left mid back: BASAL CELL CARCINOMA (C44.519) (see microscopic description and comment) Specimen B. 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 0 5:26 PM CDT DERMATOPATHOLOGY LABORATORY Gross Description Specimen A: Received is one formalin filled container labeled with the patient's name and designated left mid back. The specimen consists of a shave submitted in multiple pieces measuring [id number] in total. Jar 0. Specimen B: Received is one formalin filled container labeled with the patient's name and designated left neck. The specimen consists of a shave measuring 26y5d3jr. Jar 0. 0 5:26 PM CDT DERMATOPATHOLOGY LABORATORY Microscopic Description Specimen A. SKIN, left mid back: The specimen consists of aggregates of basaloid cells, located within the superficial dermis, with high nuclear to cytoplasmic ratio and peripheral palisading. COMMENT: The small size of the specimen limits subtyping of the lesion. Specimen B. SKIN, left neck: The epidermis shows parakeratosis, full thickness disorderly maturation of keratinocytes, mitoses at different levels, and dyskeratotic cells. Focal nests are present in the dermis. The lesion is inflamed. 0 5:26 PM CDT DERMATOPATHOLOGY LABORATORY Disclaimer An external and internal positive and negative controls are appropriate for the histochemical, immunohistochemical and immunofluorescence stain(s) in this case (if any), except where stated explicitly. The performance characteristics of the stain(s) cited in this report were developed and its performance characteristic determined by the Dermatopathology Laboratory at [facility], directed by Dr. Jacinto Wise. These tests need not be, and therefore are not, approved by the [place] Food and Drug Administration. The tests are used for clinical purposes. Billing Codes Specimen Charges Stain Charges 17109 68300 1 1 0 5:26 PM CDT DERMATOPATHOLOGY LABORATORY Embedded Images 0 5:26 PM CDT DERMATOPATHOLOGY LABORATORY Pathology/Cytology TISSUE SPECIMEN FROM SKIN / Unknown 05/27/2020 05/28/2020 1:24 PM CDT Miscellaneous samples (specimen) TISSUE SPECIMEN FROM SKIN / Unknown 05/27/2020 05/28/2020 1:24 PM CDT Radha Tang MD LAB - PATHOLOGY/CYT OLOGY ORDERABLES DERMATOPATHOLOGY LABORATORY [facility] - Department of Dermatology [facility] [address] [place] [address], [address] [phone] documented in this encounter Visit Diagnoses Not on filedocumented in this encounter
--- OUTSIDE RECORDS SUMMARY | 2024-11-22 14:05 | XMS_ITS | CONTINUITY OF CARE DOCUMENT ---
Author Name reynaldo jacobs Address Unknown Organization [facility] Address [address] [address] [place] [address] Phone [phone] Care Team Providers Care Sas Programmer Name Role Phone Vinod HILLIARD, Carlos Unavailable JUAN KANG MD Unavailable [phone] INSURANCE PROVIDERS Payer name Policy type / Coverage type [place] red green party ID [facility] Medicaid 2 [id number]
--- OUTSIDE RECORDS SUMMARY | 2024-11-22 14:05 | XMS_ITS | Encounter Summary ---
Author Organization [facility] Address [address] [place] [address] Care Team Providers Care Hiv Nurse Name Role Phone Unavailable Primary Care Provider Unavailabl e Encounter Details Date Type Department Care Team (Late st Contact Info) Description 07/21/2020 Lab Requisition [facility] [address] [facility] [address] [place] [id number] Radha Tang MD [address] [facility] [address] [place] [address] Social History Tobacco Use Types Packs/Day Years Used Date Smoking Tobacco: Never Assessed Sex and Gender Information Value Date Recorded Sex Assigned at Not on file Gender Identity Not on file Sexual Orientation Not on file documented as of this encounter Plan of Treatment Not on file documented as of this encounter Procedures Procedure Name Priority Date/Time Associated Diagnosis Comments DERMATOPATHOLOGY Routine 07/17/2020 12:0 0 AM 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 0 4:44 PM [facility] DERMATOPATHOLOG[facility]ORAT[facility] Gross Description Specimen A: Received is one formalin filled container labeled with the patient's name and designated left neck. The specimen consists of a non-oriented ellipse of skin measuring [id number]. The epidermal surface consists of a centrally located 6x5mm previous biopsy site. The margin is inked green. The 12 o'clock and 6 o'clock tips are submitted in cassette 1. The remainder of the ellipse is serially sectioned and submitted in cassettes 2-5. Jar 0. 0 4:44 PM [facility] DERMATOPATHOLOGY [facility]ORATORY Microscopic Description Specimen A. SKIN, left neck: There are fibroblasts and collagen bundles oriented parallel to the skin surface. There are elongated blood vessels, some of which are oriented perpendicular to the skin surface. No residual squamous cell carcinoma is identified. In block 4, away from the scar, there is focal parakeratosis. The lower half of the epidermis shows disorderly maturation of keratinocytes with nuclear pleomorphism. 0 4:44 PM [facility] DERMATOPATHOLOGY [facility]ORATORY Disclaimer An external and internal positive and negative controls are appropriate for the histochemical, immunohistochemical and immunofluorescence stain(s) in this case (if any), except where stated explicitly. The performance characteristics of the stain(s) cited in this report were developed and its performance characteristic determined by the Dermatopathology Laboratory at [facility], directed by Dr. Jacinto Wise. These tests need not be, and therefore are not, approved by the [place] Food and Drug Administration. The tests are used for clinical purposes. Billing Codes Specimen Charges Stain Charges 17818 1 0 4:44 PM [facility] DERMATOPATHOLOGY [facility]OR[facility] Embedded Images 0 4:44 PM [facility] DERMATOPATH[facility]Y [facility] Pathology/Cytolog y TISSUE SPECIMEN FROM SKIN / Unknown 07/17/2020 07/21/2020 10:50 AM [facility] Radha Tang MD LAB - PATHOLOGY/CYT OLOGY ORDERABLES DERMATOPATHOLOGY LABORATORY [facility] - Department of Dermatology [address], [address] [phone] documented in this encounter Visit Diagnoses Not on filedocumented in this encounter
--- OUTSIDE RECORDS SUMMARY | 2024-11-22 14:05 | XMS_ITS | Clinical Summary ---
Author Organization [facility] Address [address] [place] [address] Care Team Providers Care Patient Transport Orderly Name Role Phone Unavailable Primary Care Provider Unavailabl e Source Comments [facility],non-owned Affiliates and Associated Physician Practices is amultiple site organization consisting of ambulatory clinics and hospital sitesin [place], [place], [place] and [place]. This disclosure is being madepursuant to the Care Everywhere program and may not contain all information available regarding this patient. Last updated 18.[facility] [employer] Social History Tobacco Use Types Packs/Day Years Used Date Smoking Tobacco: Never Assessed Sex and Gender Information Value Date Recorded Sex Assigned at Not on file Gender Identity Not on file Sexual Orientation Not on file Plan of Treatment Health Maintenance Due Date Last Done Comments HEPATITIS C SCREENING 07/30/1965 DTAP/TDAP/TD VACCINES (1 - Tdap) 1966 PNEUMOCOCCAL VACCINE 50+ (1 of 1 - PCV) 1997 ZOSTER VACCINE (1 of 2) 1997 Respiratory Syncytial Virus (RSV) Vaccine Pt: or over 60 yrs (1 - 1-dose 75+ series) 2022 COVID-19 VACCINE ( - 2023-2 5 season) 2024 INFLUENZA VACCINE (#1) 2024 DEPRESSION SCREENING 09/12/2024 HEPATITIS B VACCINE Aged Out No longe r eligible based on patient's age to complete this topic HIB VACCINE Aged Out No longer eligi ble based on patient's age to complete this topic HPV VACCINE Aged Out No longer eligi ble based on patient's age to complete this topic MENINGOCOCCAL (Group B) VACC INE SHARED DECISION-MAKING Aged Out No longer eligibl e based on patient's age to complete this topic MENINGOCOCCAL GROUPS A/C/Y/W VACCINE Aged Out No longer eligible b ased on patient's age to complete this topic
== END 2024-11-22 12:38 | disposition home or self-care (01) ==
LOC: ANHIMG 12:39
PROVIDERS: PCP Internal Medicine; Visit Provider Pain Medicine Interventional Pain Medicine
DX: M47.814 Spondylosis without myelopathy or radiculopathy, thoracic region (principal)
CPT/HCPCS: 72072

== ENCOUNTER 2025-01-10 12:12 | Outpatient (CLI) | payer MEDICARE, SELFPAY ==
--- NOTE | ~2025-01-10 | CT_ITS ---
CT Scan of the Chest without Contrast: Clinical Indication: Pulmonary nodule Technique: Contiguous sections were acquired throughout the chest without intravenous contrast. Dose reduction technique was used on this scan by utilizing automated exposure control and iterative recon struction technique. The dose-length product (DLP) was 208.51 mGy-cm. COMPARISON: 06/15/2024 Findings: There is no evidence of any significant mediastinal, hilar or axillary lymphadenopathy. Coronary amaury ry calcifications are present. There is no evidence of pleural or pericardial effusion. Irregular groundglass lesion in the right upper lobe is similar to prior exam, measuring up to 30 mm in maximal diameter. Additional groundglass nodule in the more central right upper lobe is unchanged (axial image 53). Stable 7 mm peripheral right upper lobe nodule (axial image 56). Stable right lower lobe groundglass nodule (axial image 99). Stable subtle left lower lobe groundglass nodule (axial im age 86). Stable left apical groundglass nodules (axial image 29 for example). Images through the upper abdomen reveal no abnormalities. Impression: Multiple groundglass lesions/nodules are unchanged, as detailed above, largest at the right upper lob e. Stable 7 mm solid peripheral right upper lobe nodule. Reviewed, dictated and finalized at location M. Impression: Multiple groundglass lesions/nodules are unchanged, as detailed above, largest at the right upper lobe. Stable 7 mm solid peripheral right upper lobe nodule.
== END 2025-01-10 12:13 | disposition home or self-care (01) ==
PROVIDERS: PCP Internal Medicine; Visit Provider Internal Medicine
DX: R91.8 Other nonspecific abnormal finding of lung field (principal)
CPT/HCPCS: 71250

== ENCOUNTER 2025-02-26 02:06 | Day surgery (SDC) | payer MEDICARE, SELFPAY ==
[2025-02-11 13:51] VITALS: BMI 29.8
[2025-02-26 08:20] VITALS: BP 164/67; PULSE 99; RESP 18; TEMP 36.9; O2SAT 98
[2025-02-26] MEDS: LACTATED RINGERS 1,000 ML 150 ML IV CONT (08:33)
[2025-02-26 08:35] LABS: Glucose Point of Care 177 mg/dl (65-105)
--- NOTE | 2025-02-26 08:39 | P.PNAN_ITS ---
Anes - Initial Pre Proc Eval Procedure: Operation Date: 02/26/25 09:30 Proposed Procedures p Colonoscopy - Vic Ramey MD Date/Time: 02/26/25 08:39 Surgeon: Vic Ramey MD Pre Op Diagnosis: Personal history of colon polyps, unspecified Patient Data Age: 79 Gender: M Height: 1.85 m Weight: 98.9 kg Last Vital Signs Temp 36.9 C 02/26/25 08:20 Pulse 99 02/26/25 08:20 Resp 18 02/26/25 08:20 BP 164/67 H 02/26/25 08:20 Pulse Ox 98 02/26/25 08:20 O2 Del Method Room Air 02/26/25 08:20 Allergies Allergy/AdvReac Type Severity Reaction Status Date / Time No Known Allergies Allergy Verified 02/26/25 08:18 Home Medications ?Medication ?Instructions ?Recorded ?Confirmed ?Type atorvastatin 20 mg tablet 20 mg PO DAILY 11/21/19 02/26/25 History gabapentin 800 mg tablet 800 mg PO TID 11/21/19 02/26/25 History glipizide 5 mg tablet 5 mg PO BID 11/21/19 02/26/25 History losartan 100 1 tablet PO DAILY 11/21/19 02/26/25 History mg-hydrochlorothiazide 12.5 mg tablet metformin 1,000 mg tablet 1,000 mg PO BID 11/21/19 02/26/25 History epzszypbtbyz-shm-gzjug acid-vit 1 tablet PO DAILY 11/21/19 02/26/25 History K-lycop 400 mcg-20 mcg-370 mcg tablet (Men's 50 Plus Multivitamin) latanoprost 0.005 % eye drops 1 drp ophthalmic (eye) DAILY 11/23/19 02/26/25 History amlodipine 5 mg tablet 5 mg PO DAILY 02/11/25 02/26/25 History tramadol 50 mg tablet 50 mg PO TID 02/11/25 02/26/25 History Laboratory Tests 02/26/25 08:32 POC Capillary Glucose 177 H mg/dl (65-105) Patient hx anesthesia problems: none Family hx anesthesia problems: none Results Review: All pre-operative results and documents have been reviewed as part of the pre- operative evaluation. [facility] Past Medical History Medical History Diabetes Hypertension Hyperlipidemia Prostate cancer Iron deficiency anemia Social History Social History Smoking packs per day: 3 Smoking cigarettes per day: 60.0 Years smoked: 50 Smoking pack-years: 150.00 Smoking status: Former smoker Tobacco type: cigarettes Alcohol intake: never Substance use: never Substance use type: does not use Living arrangements: alone Spiritual care concerns: No Anes - Eval Final PreProcedure Day of Procedure 02/26/25 08:39 Patient weight: overweight Heart: regular rate and rhythm Lungs: decreased breath sounds Airway: Mallampati scale class III Neurological: alert and oriented Last oral intake: >/= 8 hours ASA classification: III Emergent: no Anesthetic plan: proceed Anesthesia type and monitoring: general GIVS and standard monitoring Results Review: All pre-operative results and documents have been reviewed as part of the pre-op erative evaluation. Informed Consent: The patient's anesthetic plan and its attendant risks and benefits were discussed with the patient/family/POA. Questions were solicited and answers provided to the satisfaction of the patient/family/POA.
--- NOTE | 2025-02-26 09:12 | PM.HPGS ---
History of Present Illness History of Present Illness Consent: Risks, benefits, and alternatives have been discussed and questions answered. Patient agrees to proceed with procedure. Chief complaint: Personal history of colon polyps, unspecified Narrative: Gordon Lopez III is a 79 year old male with colon polyp in 2019 Review of Systems Review of Systems: All systems reviewed & are unremarkable except as noted in HPI and below PMFSH Past Medical History Medical History (Updated 02/26/25 @ 09:13 by Vic Ramey MD) Colon polyp Diabetes Hypertension Hyperlipidemia Prostate cancer Iron deficiency anemia Social History Social History Smoking packs per day: 3 Smoking cigarettes per day: 60.0 Years smoked: 50 Smoking pack-years: 150.00 Smoking status: Former smoker Tobacco type: cigarettes Alcohol intake: never Substance use: never Substance use type: does not use Living arrangements: alone Spiritual care concerns: No Meds Home Medications and Allergies Home Medications ?Medication ?Instructions ?Recorded ?Confirmed ?Type atorvastatin 20 mg tablet 20 mg PO DAILY 11/21/19 02/26/25 History gabapentin 800 mg tablet 800 mg PO TID 11/21/19 02/26/25 History glipizide 5 mg tablet 5 mg PO BID 11/21/19 02/26/25 History losartan 100 1 tablet PO DAILY 11/21/19 02/26/25 History mg-hydrochlorothiazide 12.5 mg tablet metformin 1,000 mg tablet 1,000 mg PO BID 11/21/19 02/26/25 History qlhkjybcgqzi-cny-apjgj acid-vit 1 tablet PO DAILY 11/21/19 02/26/25 History K-lycop 400 mcg-20 mcg-370 mcg tablet (Men's 50 Plus Multivitamin) latanoprost 0.005 % eye drops 1 drp ophthalmic (eye) DAILY 11/23/19 02/26/25 History amlodipine 5 mg tablet 5 mg PO DAILY 02/11/25 02/26/25 History tramadol 50 mg tablet 50 mg PO TID 02/11/25 02/26/25 History Allergies Allergy/AdvReac Type Severity Reaction Status Date / Time No Known Allergies Allergy Verified 02/26/25 08:18 Vital Signs Vital Signs - 24 hr 02/26/25 08:20 Temperature 98.4 F Pulse Rate 99 Respiratory Rate 18 Blood Pressure 164/67 H Pulse Oximetry 98 Oxygen Delivery Room Air Exam Const: General: comfortable and no acute distress HENMT: Face/Nose/Sinus: Normal nares present Eyes: General: appearance normal, both eyes and all related structures Neck: Neck: no JVD Resp: Auscultation: clear to auscultation bilaterally Cardio: Rate: regular rate Rhythm: regular rhythm GI: Inspection: non-distended GI Palp: Yes Soft to palpation Skin: General skin exam: normal color Neuro: Speech: normal speech Extrem: General: normal to inspection Psych: Mental Status: mental status grossly normal Assessment and Plan Assessment and plan (1) Colon polyp: Code(s): K63.5 - Polyp of colon Status: Acute Assessment and Plan: colonoscopy
--- NOTE | 2025-02-26 09:28 | S_PTH ---
PATIENT: Gordon Lopez III LOC: [facility]#:[id number] AGE/SX: 79/M ROOM: RE02/26/[address]: Vic Ramey MD : 1945 BED: DIS: 02/26/2025 SPEC #: [id number] RECD: 02/26/25 10:06 STATUS: DANIEL CARPIO #: [id number] REBECCA: 02/26/25 09:[address]: Vic Ramey DEPT: [facility] Surgical RECD BY: Jimena Zhou ENTERED: 02/26/25 10:06 SP TYPE: Surgical OTHR DR: Christopher HurleyMD Tissues: A - Colon Polypectomy B - Colon Polypectomy Procedures: Hematoxylin and Eosin Stain Gross and Microscopic Level 4
[2025-02-26 09:30] VITALS: BP 140/77; PULSE 94; RESP 20; O2SAT 96
[2025-02-26 09:40] VITALS: BP 138/85; PULSE 91; RESP 18; O2SAT 98
[2025-02-26 09:50] VITALS: BP 151/84; PULSE 91; RESP 19; O2SAT 98
== END 2025-02-26 09:56 | disposition home or self-care (01) ==
PROVIDERS: PCP Internal Medicine; Referring Provider Internal Medicine Gastroenterology; Visit Provider Internal Medicine Gastroenterology
PROC: 0DJD8ZZ Inspection of Lower Intestinal Tract, Via Natural or Artificial Opening Endoscopic (ICD-10-PCS; CPT 45378; principal; 2025-02-26 09:30)
DX: Z12.11 Encounter for screening for malignant neoplasm of colon (principal); D12.2 Benign neoplasm of ascending colon; D12.3 Benign neoplasm of transverse colon; K57.30 Diverticulosis of large intestine without perforation or abscess without bleeding; K64.8 Other hemorrhoids; E11.9 Type 2 diabetes mellitus without complications; Z87.891 Personal history of nicotine dependence
CPT/HCPCS: 45380; 45385; 82948; 88305; J2003; J2704; J7120

== ENCOUNTER 2025-08-30 15:12 | Outpatient (CLI) | payer MEDICARE, SELFPAY ==
--- NOTE | ~2025-08-30 | XR_ITS ---
XR thoracic spine 3V Indication: RADICULOPATHY; CERVICAL, THORACIC, LUMBAR Comparison: None Findings: Mild levoconvex scoliosis. Moderate loss of vertebral height throughout. No acute fracture or subluxation. Minimal loss of disc height throughout. Soft tissues unremarkable Impression: No acute abnormality. Reviewed, dictated and finalized at location P. ICAL NURSE PRACTITIONER Impression: No acute abnormality.
--- NOTE | ~2025-08-30 | XR_ITS ---
XR_CERV2-3V_CR Indication: RADICULOPATHY, CERVICAL Comparison: None Findings: Grade 1 anterolisthesis C3 on C4, no fracture. Mild osteopenia. No acute fracture. Moderate loss of disc height C4-5 C5-6 and C6-7. Soft tissues unremarkable Impression: No acute abnormality. Reviewed, dictated and finalized at location P. CH CRAB Impression: No acute abnormality.
--- NOTE | ~2025-08-30 | XR_ITS ---
XR lumbar spine 2-3V Indication: RADICULOPATHY; CERVICAL, THORACIC, LUMBAR Comparison: None Findings: Grade 1 anterolisthesis of L4 on L5, no fracture. Severe loss of disc height at L5-S1. Soft tissues unremarkable Impression: No acute abnormality. Reviewed, dictated and finalized at location P. ATIONS EXAMINER Impression: No acute abnormality.
--- NOTE | ~2025-08-30 | CT_ITS ---
CT lung screening INDICATION: Pulmonary nodules, follow-up COMPARISON: 01/10/2025. TECHNIQUE: CT examination of the entire thorax without contrast was performed using low dose technique. Thin section axial, sagittal and coronal images were included to increase sensitivity for small lung nodules. FINDINGS: PULMONARY NODULES: Part solid nodule in the right upper lobe measures 3.1 x 2.6 cm on axial image 40 previously measured up to 3 cm. Part solid nodule within the right upper lobe measures 1.8 cm on axial image 59, previously measured up to 1.8 cm. Part solid nodule within the posterior right lower lobe measures 1.6 cm on axial image 106, previously measured 1.5 cm. There is a solid peripheral nodule within the right upper lobe measured .86 cm on axial image 56. This previously measured 7 mm. Faint groundglass nodule within the left upper lobe and left lower lobe is stable. OTHER PULMONARY FINDINGS: No significant nonnodular pleural or parenchymal abnormality is noted. Mild emphysematous changes are present. No pathologically enlarged lymph nodes are present. Normal heart size. UPPER ABDOMEN AND PERIPHERAL SOFT TISSUE: Limited views of the upper abdomen and peripheral soft tissue demonstrated no abnormalities. OSSEOUS STRUCTURES: Bone window shows no aggressive blastic or lytic lesions. IMPRESSION: 1. Lung-RADS category 4A: Stat clinic consultation recommended for further management. Recommendations: Follow-up CT in 3 months is recommended. 2. Mild emphysematous changes are present. All CT scans at this facility are performed using low dose modulation techniques as appropriate to perform exam including the following: automated exposure control; use of iterative reconstruction technique; adjustment of the mA and/or kV according to patient size (this includes techniques or standardized protocols for targeted exams where dose is matched to indication/reason for exam). Reviewed, dictated and finalized at location S. Y EXTRACTOR IMPRESSION: 1. Lung-RADS category 4A: Stat clinic consultation recommended for further saima gement. Recommendations: Follow-up CT in 3 months is recommended. 2. Mild emphysematous changes are present. All CT scans at this facility are performed using low dose modulation techniqu es as appropriate to perform exam including the following: automated exposure c ontrol; use of iterative reconstruction technique; adjustment of the mA and/or kV according to patient size (this includes techniques or standardized protocol s for targeted exams where dose is matched to indication/reason for exam).
== END 2025-08-30 15:13 | disposition home or self-care (01) ==
PROVIDERS: PCP Internal Medicine; Referring Provider Pain Medicine Interventional Pain Medicine; Visit Provider Internal Medicine
DX: Z12.2 Encounter for screening for malignant neoplasm of respiratory organs (principal); Z87.891 Personal history of nicotine dependence; M54.12 Radiculopathy, cervical region; M54.14 Radiculopathy, thoracic region; M54.16 Radiculopathy, lumbar region
CPT/HCPCS: 71271; 72040; 72072; 72100